=== PATIENT | male | born 1975 | race American Indian/Alaskan Native ===

== ENCOUNTER 2016-11-22 08:11 | Inpatient (IN) | payer MEDICARE ==
--- NOTE | 2016-11-22 08:24 | ED PDOC ---
Arrival/HPI - General Time Seen by Provider: 11/22/16 08:21 - History of Present Illness Narrative History of Present Illness (Text): 11/22/16 08:21 Pt transferred for psych admission from another facility. Previously medically cleared by another physician. pt currently denies complaints. Pt admitted to med non compliance, drug use, and auditory hallucinations. Denies suicidal or homicidal ideations. Past Medical History - Provider Review Nursing Documentation Reviewed: Yes Family/Social History Family/Social History: Unknown Family HX Allergies/Home Meds Allergies/Adverse Reactions: Allergies No Known Allergies Allergy (Verified 11/22/16 08:21) Home Medications: Home Meds Medication Instructions Recorded Confirmed Unobtainable 11/22/16 11/22/16 Physical Exam - Physical Exam Narrative Physical Exam (Text): 11/22/16 08:23 - Review of Systems Constitutional: Normal. absent: Fatigue, Weight Change, Fevers Eyes: Normal ENT: denies sore throat, denies tristhmus Respiratory: Normal. absent: SOB, Cough, Sputum Cardiovascular: absent: Chest Pain, Palpitations, Syncope Gastrointestinal: Normal. absent: Abdominal Pain, Diarrhea, Nausea, Vomiting Genitourinary: Normal. absent: Dysuria, Frequency, Hematuria Musculoskeletal: Normal. absent: Arthralgias, Back Pain, Neck Pain Skin: no rashes, no erythema Neurological: absent: Focal Weakness Endocrine: Normal Hemo/Lymphatic: Normal Psychiatric: No suicidal or homicidal ideations Physical exam Patient appears age appropriate in no distress, speaking full sentences without difficulty - Systems Exam Head: Present: Atraumatic, Normocephalic Pupils: Present: PERRL Extroacular Muscles: Present: EOMI Conjunctiva: Present: Normal Mouth: Present: Moist Mucous Membranes Neck: Present: Normal Range of Motion. No: MIDLINE TENDERNESS, Paraspinal Tenderness Respiratory/Chest: Present: Clear to Auscultation, Good Air Exchange. No: Respiratory Distress, Accessory Muscle Use, Tachypneic Cardiovascular: Present: Regular Rate and Rhythm, Normal S1, S2, Peripheal Pulses Present. No: Murmurs Abdomen: Present: Normal Bowel Sounds. No: Tenderness, Distention, Peritoneal Signs, Rebound, Guarding Back: Present: Normal Inspection. No: Midline Tenderness, Paraspinal Tenderness Upper Extremity: Present: Normal Inspection. No: Cyanosis, Edema Lower Extremity: Present: Normal Inspection. No: Edema Neurological: Present: GCS=15, Speech Normal, cranial nerves II through XII fully intact with no cerebellar abnormality, neurosensory fully intact. No focal neurological deficits. Skin: Present: Warm, Dry, Normal Color. No: Rashes Lymphatic: Present: OX3, NI, NC Psychiatric: Present: Alert, Oriented x 3, no SI/HI, cooperative Vital Signs Reviewed: Yes Vital Signs Temp Pulse Resp BP Pulse Ox 11/22/16 08:17 97.9 F 61 18 109/60 99 Temperature: Afebrile Blood Pressure: Normal Pulse: Regular Respiratory Rate: Normal Appearance: Positive for: Well-Appearing Pain Distress: None Mental Status: Positive for: Alert and Oriented X 3 Medical Decision Making ED Course and Treatment: 11/22/16 08:23 for psychiatric admission pt aware of and agrees with plan Disposition/Present on Arrival - Present on Arrival Any Indicators Present on Arrival: No - Disposition Have Diagnosis and Disposition been Completed?: Yes Diagnosis: Hallucinations Disposition: HOSPITALIZED Disposition Time: 08:24 Patient Plan: Admission Condition: FAIR
[2016-11-22 12:16] LABS: CHOLESTEROL 168 mg/dL (130-200)
[2016-11-22 13:43] LABS: URINE BILIRUBIN NEGATIVE (NEGATIVE); URINE BLOOD NEGATIVE (NEGATIVE); URINE GLUCOSE (UA) NEGATIVE (NEGATIVE); URINE KETONE NEGATIVE (NEGATIVE); URINE LEUKOCYTE ESTERASE NEGATIVE Leu/uL (NEGATIVE); URINE PROTEIN NEGATIVE mg/dL (<30 mg/dL); URINE UROBILINOGEN 0.2 E.U./dL (<1 E.U./dL)
[2016-11-22 13:45] LABS: URINE APPEARANCE CLEAR (CLEAR); URINE COLOR YELLOW (YELLOW)
--- NOTE | 2016-11-22 13:57 | CP.PCM.CON ---
<Malia Guzmán - Last Filed: 11/22/16 14:45> History of Present Illness - History of Present Illness History of Present Illness: Malia Guzmán DO, PGY-1, Hospitalist Service: Medical Consult Note 41 year old -Iraqi male with a history of polysubstance abuse, homelessness, and reported schizoaffective disorder, bipolar type who was seen at [facility] in [place], [place], medically cleared and transferred here to [facility] for in-patient, voluntary psychiatric management for auditory hallucinations. The patient reports smoking crack cocaine and then developing auditory hallucinations. He also admits to drinking alcohol heavily, "a pint of gin or vodka" regularly. His last drink was 4-5 days ago. He denies any seizure activity, any history of seizures, tremors, visual hallucinations, but admitted to some sweats and tremors in the interim. Routine diagnostic tests performed in [place] were normal, except for evidence of a Urinary Tract Infection, for which he was started on Doxycycline 100 mg BID. The patient admits to polyruia, 8-10 times a day for the past week, but denies dysuria, pyuria, suprapubic fullness, hesistance or decreased flow. He further denies any flank pain, fever, or chills. On review of systems, he denies any chest pain, SOB, nausea, vomiting, night sweat, hoarseness, diarrhea, or constipation. PMH: reported Schizoaffective disorder, bipolar type, polysubstance abuse PSH: Tonsillectomy in childhood Family History: Mother of Leukemia in 60s, Father of prostate cancer Allergies: NKDA Social: Homeless, unemployed; formerly worked in [employer] industry: Finished [employer]; Did not complete accounting and computer science degree from [employer]; uses Crack-cocaine, 35 pack year history of tobacco smoking, uses heroin -last used a month ago-denies knowledge of HCV or HIV status; drinks a pint of hard liquor a day, Review of Systems - Constitutional Constitutional: As Per HPI Past Patient History - Infectious Disease Hx of Infectious Diseases: None - Past Social History Smoking Status: Unknown If Ever Smoked - PSYCHIATRIC Hx Schizophrenia: Yes Hx Substance Use: Yes - SURGICAL HISTORY Hx Surgeries: No Meds Allergies/Adverse Reactions: Allergies Allergy/AdvReac Type Severity Reaction Status Date / Time No Known Allergies Allergy Verified 11/22/16 08:21 - Medications Medications: Current Medications Acetaminophen (Tylenol 325mg Tab) 650 mg PO Q6 PRN PRN Reason: Pain, moderate (4-7) Doxycycline Hyclate (Doryx) 100 mg PO Q12 BRIGETTE PRN Reason: Protocol Lorazepam (Ativan) 0.5 mg PO AMHS BRIGETTE Risperidone (Risperdal Tab) 0.5 mg PO AMHS BRIGETTE Zaleplon (Sonata) 5 mg PO HS PRN PRN Reason: Insomnia Physical Exam - Constitutional Appears: Well, Non-toxic - Head Exam Head Exam: ATRAUMATIC, NORMOCEPHALIC - Eye Exam Eye Exam: EOMI, Normal appearance - ENT Exam ENT Exam: Mucous Membranes Moist, Normal Oropharynx - Neck Exam Neck exam: Positive for: Normal Inspection. Negative for: Thyromegaly - Respiratory Exam Respiratory Exam: Clear to Auscultation Bilateral, NORMAL BREATHING PATTERN - Cardiovascular Exam Cardiovascular Exam: RRR, +S1, +S2 - GI/Abdominal Exam GI & Abdominal Exam: Normal Bowel Sounds, Soft. absent: Guarding, Rebound - Extremities Exam Extremities exam: Positive for: normal capillary refill, normal inspection, pedal pulses present - Back Exam Back exam: NORMAL INSPECTION. absent: CVA tenderness (L), CVA tenderness (R) - Neurological Exam Neurological exam: Alert, CN II-XII Intact, Oriented x3 - Psychiatric Exam Psychiatric exam: Normal Affect, Normal Mood - Skin Skin Exam: Dry, Intact, Normal Color, Warm Additional comments: Nails yellowed and unkempt Results - Vital Signs Recent Vital Signs: Last Vital Signs Temp 97.9 F 11/22/16 09:30 Pulse 62 11/22/16 09:30 Resp 20 11/22/16 09:30 BP 103/63 11/22/16 09:30 Pulse Ox 99 11/22/16 08:17 - Labs Labs: Laboratory Results - last 24 hr 11/22/16 11:50 Triglycerides 84 Cholesterol 168 LDL Cholesterol Direct 56 HDL Cholesterol 93 H - EKG Data EKG Interpreted by: Myself EKG shows normal: Sinus rhythm Rate: Normal Assessment & Plan - Assessment and Plan (Free Text) Assessment: 41 year old -Iraqi male with a history of polysubstance abuse, homelessness, and reported schizoaffective disorder, bipolar type who was seen at a hospital in [place], [place], and was medically cleared for transfer to [facility] psychiatric unit for auditory hallucinations likely secondary to crack use four days prior. He was found to have a UTI and started on Doxycycline 100 mg BID. Plan: 1) UTI - Patient admits to polyruria, UA was positive for Leukocyte Esterase with 10- 12 WBC from [place], [place] - Repeat Urine Analysis and Culture ordered -Continue with Doxycycline 100 mg BID 2) Routine screening: Labs from from [place], [place] Lipid panel within normal limits; EKG, CBC, and CMP reviewed and were all within normal limits except urine toxicology was positive for cocaine -TSH, HgbA1c, CMP, RPR, ordered for Thursday per Psychiatry 3) Polysubstance abuse, including possible alcohol withdrawal - Ativan PRN -Defer to psychiatric unit 4) Affective disorder, unspecified - Defer to psychiatric team Thank you for allowing us to participate in the care of this patient. - Date & Time Date: 11/22/16 Time: 14:35 <Jacquelin Lakhani - Last Filed: 11/22/16 15:31> Meds - Medications Medications: Current Medications Acetaminophen (Tylenol 325mg Tab) 650 mg PO Q6 PRN PRN Reason: Pain, moderate (4-7) Doxycycline Hyclate (Doryx) 100 mg PO Q12 BRIGETTE PRN Reason: Protocol Lorazepam (Ativan) 0.5 mg PO AMHS BRIGETTE Risperidone (Risperdal Tab) 0.5 mg PO AMHS BRIGETTE Zaleplon (Sonata) 5 mg PO HS PRN PRN Reason: Insomnia Results - Vital Signs Recent Vital Signs: Last Vital Signs Temp 97.9 F 11/22/16 09:30 Pulse 62 11/22/16 09:30 Resp 20 11/22/16 09:30 BP 103/63 11/22/16 09:30 Pulse Ox 99 11/22/16 08:17 - Labs Labs: Laboratory Results - last 24 hr 11/22/16 11/22/16 11:50 13:40 Triglycerides 84 Cholesterol 168 LDL Cholesterol Direct 56 HDL Cholesterol 93 H Urine Color Yellow Urine Appearance Clear Urine pH 6.0 Ur Specific [place] 1.020 Urine Protein Negative Urine Glucose (UA) Negative Urine Ketones Negative Urine Blood Negative Urine Nitrate Negative Urine Bilirubin Negative Urine Urobilinogen 0.2 Ur Leukocyte Esterase Negative Attending/Attestation - Attestation I have personally seen and examined this patient.: Yes I have fully participated in the care of the patient.: Yes I have reviewed all pertinent clinical information: Yes Notes (Text): 11/22/16 15:27 attending note; Patient seen and examined with resident. Patient is a 41 year old -Iraqi male with a history of polysubstance abuse, homelessness, and reported schizoaffective disorder, bipolar type is admitted to the psychiatric floor for depression. Patient was transferred from [facility]. Labs reviewed. UA showed negative nitrate few leukocytes. Patient is afebrile. Nontoxic. No urinary symptoms. WBC count is normal. Clean catch urine is negative for nitrates and leukocytes. Will discontinue doxycycline. Active smoking; smoking cessation is strongly advised. started on NicoDerm patch. Alcohol use; alcohol cessation is strongly advised. cocaine abuse; cessation is strongly advised. Patient is medically stable. Please reconsult As needed. thank you for the courtesy of this consultation. Advised to follow-up with PMD of choice upon discharge.
--- NOTE | 2016-11-22 15:49 | PCM.BM ---
Treatment Plan Problems - Problems identified on initial assessmt Hopelessness Date Initiated: 11/22/16 Time Initiated: 10:00 Assessment reference: NA Status: Active Priority: 1 Worthlessness Date Initiated: 11/22/16 Time Initiated: 10:00 Assessment reference: NA Status: Active Priority: 2 Medication NonCompliance Date Initiated: 11/22/16 Time Initiated: 10:00 Assessment reference: NA Status: Active Priority: 3 Treatment assets and liabiliti Patient Assests: negotiates basic needs Patient Liabilities: poor support system, substance abuse, legal issue - Milieu Protocol Maintain good personal hygiene: daily Encourage regular showers, daily Remind patient to perform daily oral care, daily Assist patient to perform ADL's Conduct patient checks and document Observation sheet: Q15 minutes Maintain personal safety: every shift Educate patient to report safety concerns to staff, every shift Monitor environment for contraband/sharps Medication safety: Monitor for expected outcome, potential side effects: every shift, Assess barriers to learning: every shift, Assess readiness for medication education: every shift Discharge/Continuing Care - Education Needs Education Needs: Patient Medication, Patient Diagnosis/Disease Process, Patient Coping Skills, Patient Anger Management skills, Patient Placement options, Patient Activities of Daily Living, Patient Nutrition, Patient Health Practices/ Safety, Patient Aftercare Safety Plan - Discharge Discharge Criteria: Free of paranoid thoughts, Ability to care for self
[2016-11-23 08:59] LABS: BASO # 0.05 K/mm3 (0.0-2.0); BASO % 0.9 % (0.0-3.0); EOS # 0.2 (0.0-0.7); EOS % 3.7 % (1.5-5.0); GRAN # 3.03 (1.4-6.5); GRAN % 56.6 % (50.0-68.0); HEMATOCRIT 39.7 % (42.0-52.0); LYMPH # 1.6 (1.2-3.4); LYMPH % 29.1 % (22.0-35.0); MEAN CELL VOLUME 78.8 fl (80.0-105.0); MEAN CORPUSCULAR HEMOGLOBIN 26.6 pg (25.0-35.0); MEAN CORPUSCULAR HGB CONC 33.8 g/dl (31.0-37.0); MEAN PLATELET VOLUME 8.4 fl (7.0-11.0); MONO # 0.5 (0.1-0.6); MONO % 9.7 % (1.0-6.0); RED CELL DISTRIBUTION WIDTH 15.6 % (11.5-14.5); WHITE BLOOD COUNT 5.4 10^3/ul (4.5-11.0)
[2016-11-23 09:03] LABS: ALB/GLOB RATIO 1.1 (1.1-1.8); ALKALINE PHOSPHATASE 63 U/L (38-126); ALT/SGPT 33 U/L (7-56); AST/SGOT 25 U/L (17-59); BILIRUBIN,TOTAL 0.3 mg/dL (0.2-1.3); BLOOD UREA NITROGEN 15 mg/dL (7-21); CALCIUM 9.3 mg/dL (8.4-10.5); CARBON DIOXIDE 28 mmol/L (21-33); CHLORIDE 104 mmol/L (98-107); GFR AFRICAN-AMERICAN > 60; GLUCOSE,RANDOM 88 mg/dL (70-110); POTASSIUM 4.1 mmol/L (3.6-5.0); SODIUM 141 mmol/L (132-148); TOTAL PROTEIN 7.2 g/dL (5.8-8.3)
[2016-11-23] MEDS: Multivitamin With Minerals Tab PO SCH (09:04)
--- NOTE | 2016-11-23 09:26 | PCM.PSYCH ---
Initial Psychiatric Evaluation - Initial Psychiatric Evaluation Type of Admission: Voluntary Legal Status: Capacity History of Present Illness and Precipitating Events: Patient is a single homeless 41 year old -Martiniquais male with a reported history of Schizoaffective disorder, bipolar type, crack/cocaine abuse, alcohol abuse, prior psychiatric admissions-most recently at [facility] x2 months ago, no SA, noncompliance with medications who was transferred from [facility] in [place], [place] to [facility] unit for treatment of depression and auditory hallucinations. I reviewed [facility] paperwork and recent notes. I interviewed patient bedside however he was sedated and minimally cooperative with interview questions. Most information was gathered from aforementioned paperwork. Patient arrived at [facility] ED indicating that he "needed help to get back on his feet". Patient has been homeless for over year, using crack cocaine and drinking a pint of vodka regularly. His last drink was 5 days ago. Urine drug screen was positive for cocaine BAL<10. Patient only takes his medications when he is hospitalized, most recently two months ago. Presently patient continues to feel depressed however he feels safe on the unit and does not have any thoughts to harm himself. He also denies recurrence of hallucinations. Responses are relevant to questioning though they are brief and disengaged. Denies any new discomfort or pain. Thus far patient has been in control and there were no behavioral issues. PSYCHIATRIC HISTORY Patient reports multiple hospitalizations mess recently two months ago at [facility]. Patient reports that he was not compliant with medications upon discharge. Reported prescribed Haldol at discharge. Patient denies any history of suicide attempts. Patient denies any current outpatient follow-up. SOCIAL HISTORY Patient was born and raise in [place]. Homeless and unemployed. Patient completed high school. He is single and he has one 12-year-old daughter. Patient reports that he smokes crack/ cocaine and drinks a pint of vodka regularly. Patient also used heroin approximately one month ago. He denies any tobacco use. Current Medications: Active Medications Generic Name Dose Route Start Last Admin Trade Name Freq PRN Reason Stop Dose Admin Acetaminophen 650 mg 11/22/16 10:50 Tylenol 325mg Tab PO Q6 PRN Pain, moderate (4-7) Lorazepam 0.5 mg 11/22/16 22:00 11/22/16 21:11 Ativan PO 0.5 mg AMHS BRIGETTE Administration Multivitamins/Minerals 1 tab 11/23/16 08:00 Therapeutic-M Tab PO 0800 BRIGETTE Nicotine 1 patch 11/22/16 15:45 11/22/16 18:05 Nicoderm Cq TD Not Given DAILY BRIGETTE Risperidone 0.5 mg 11/22/16 22:00 11/22/16 21:11 Risperdal Tab PO 0.5 mg AMHS BRIGETTE Administration Zaleplon 5 mg 11/22/16 11:02 11/22/16 21:11 Sonata PO 5 mg HS PRN Administration Insomnia Past Psychiatric History - Past Psychiatric History Pertinent Medical Hx (Current Medical&Sleep Prob, Allergies): Allergies Allergy/AdvReac Type Severity Reaction Status Date / Time No Known Allergies Allergy Verified 11/22/16 08:21 Unobtainable 11/22/16 DSM 5 DX - DSM 5 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 - Recommended/Plan of Treatment Treatment Recommendations and Plan of Treatment: * grp, milieu and supportive tx * Celexa 10 mg po daily for depression * Haldol 2 mg AM/HS for hallucinations * Ativan 1 mg q8 for alcohol withdrawal and for anxiety * Sonata 5 mg HS prn for insomnia * Appreciate f/u by Dr Lakhani -To repeat Urine Analysis and Culture ordered -Continue with Doxycycline 100 mg BID for UTI * Vitals reviewed and noted below Selected Entries 11/22/16 11/22/16 11/23/16 09:30 16:28 06:56 Temperature 97.9 F 97.4 F L Pulse Rate 62 76 64 Respiratory 20 18 Rate Blood Pressure 103/63 103/61 81/46 L O2 Sat by Pulse 99 Oximetry Labs from from [place], [place] CBC, Chemistry, LFTS were reviewed and all within normal limits except urine toxicology was positive for cocaine UA was positive for Leukocyte Esterase with 10-12 WBC [facility] Floor Labs Laboratory Results - last 24 hr 11/22/16 11/22/16 11/23/16 11:50 13:40 08:40 WBC 5.4 RBC 5.04 Hgb 13.4 L Hct 39.7 L MCV 78.8 L MCH 26.6 MCHC 33.8 RDW 15.6 H Plt Count 342 MPV 8.4 Gran % 56.6 Lymph % (Auto) 29.1 [place] % (Auto) 9.7 H Eos % (Auto) 3.7 Baso % (Auto) 0.9 Gran # 3.03 Lymph # 1.6 [place] # 0.5 Eos # 0.2 Baso # 0.05 Sodium Potassium Chloride Carbon Dioxide Anion Gap BUN Creatinine Est GFR ( Amer) Est GFR (Non-Af Amer) Random Glucose Calcium Total Bilirubin AST ALT Alkaline Phosphatase Total Protein Albumin Globulin Albumin/Globulin Ratio Triglycerides 84 Cholesterol 168 LDL Cholesterol Direct 56 HDL Cholesterol 93 H Urine Color Yellow Urine Appearance Clear Urine pH 6.0 Ur Specific [place] 1.020 Urine Protein Negative Urine Glucose (UA) Negative Urine Ketones Negative Urine Blood Negative Urine Nitrate Negative Urine Bilirubin Negative Urine Urobilinogen 0.2 Ur Leukocyte Esterase Negative 11/23/16 08:40 WBC RBC Hgb Hct MCV MCH MCHC RDW Plt Count MPV Gran % Lymph % (Auto) [place] % (Auto) Eos % (Auto) Baso % (Auto) Gran # Lymph # [place] # Eos # Baso # Sodium 141 Potassium 4.1 Chloride 104 Carbon Dioxide 28 Anion Gap 13 BUN 15 Creatinine 0.8 Est GFR ( Amer) > 60 Est GFR (Non-Af Amer) > 60 Random Glucose 88 Calcium 9.3 Total Bilirubin 0.3 AST 25 ALT 33 Alkaline Phosphatase 63 Total Protein 7.2 Albumin 3.7 Globulin 3.5 Albumin/Globulin Ratio 1.1 Triglycerides Cholesterol LDL Cholesterol Direct HDL Cholesterol Urine Color Urine Appearance Urine pH Ur Specific [place] Urine Protein Urine Glucose (UA) Urine Ketones Urine Blood Urine Nitrate Urine Bilirubin Urine Urobilinogen Ur Leukocyte Esterase - Smoking Cessation Smoking Cessation Initiated: No
[2016-11-24] MEDS: Multivitamin With Minerals Tab PO SCH (11:13)
--- NOTE | 2016-11-24 11:40 | PCM.BM ---
<Ron Elizabeth - Last Filed: 11/24/16 11:36> Treatment Plan Problems - Problems identified on initial assessmt Problem 2 Date Initiated: 11/22/16 Time Initiated: 10:00 Assessment reference: NA Status: Active Priority: 2 Hopelessness Date Initiated: 11/22/16 Time Initiated: 10:00 Assessment reference: NA Status: Active Priority: 1 Medication NonCompliance Date Initiated: 11/22/16 Time Initiated: 10:00 Assessment reference: NA Status: Active Priority: 3 Worthlessness Date Initiated: 11/22/16 Time Initiated: 10:00 Assessment reference: NA Status: Active Priority: 2 Treatment assets and liabiliti Patient Assests: negotiates basic needs Patient Liabilities: poor support system, substance abuse, legal issue - Milieu Protocol Maintain good personal hygiene: daily Encourage regular showers, daily Remind patient to perform daily oral care, daily Assist patient to perform ADL's Conduct patient checks and document Observation sheet: Q15 minutes Maintain personal safety: every shift Educate patient to report safety concerns to staff, every shift Monitor environment for contraband/sharps Medication safety: Monitor for expected outcome, potential side effects: every shift, Assess barriers to learning: every shift, Assess readiness for medication education: every shift Milieu Narrative: * grp, milieu and supportive tx * Celexa 10 mg po daily for depression * Haldol 2 mg AM/HS for hallucinations * Ativan 1 mg q8 for alcohol withdrawal and for anxiety * Sonata 5 mg HS prn for insomnia * Appreciate f/u by Dr Lakhani -To repeat Urine Analysis and Culture ordered -Continue with Doxycycline 100 mg BID for UTI * Vitals reviewed and noted below Selected Entries 11/22/16 11/22/16 11/23/16 09:30 16:28 06:56 Temperature 97.9 F 97.4 F L Pulse Rate 62 76 64 Respiratory 20 18 Rate Blood Pressure 103/63 103/61 81/46 L O2 Sat by Pulse 99 Oximetry Labs from from [place], [place] CBC, Chemistry, LFTS were reviewed and all within normal limits except urine toxicology was positive for cocaine UA was positive for Leukocyte Esterase with 10-12 WBC [facility] Floor Labs Laboratory Results - last 24 hr 11/22/16 11/22/16 11/23/16 11:50 13:40 08:40 WBC 5.4 RBC 5.04 Hgb 13.4 L Hct 39.7 L MCV 78.8 L MCH 26.6 MCHC 33.8 RDW 15.6 H Plt Count 342 MPV 8.4 Gran % 56.6 Lymph % (Auto) 29.1 [place] % (Auto) 9.7 H Eos % (Auto) 3.7 Baso % (Auto) 0.9 Gran # 3.03 Lymph # 1.6 [place] # 0.5 Eos # 0.2 Baso # 0.05 Sodium Potassium Chloride Carbon Dioxide Anion Gap BUN Creatinine Est GFR ( Amer) Est GFR (Non-Af Amer) Random Glucose Calcium Total Bilirubin AST ALT Alkaline Phosphatase Total Protein Albumin Globulin Albumin/Globulin Ratio Triglycerides 84 Cholesterol 168 LDL Cholesterol Direct 56 HDL Cholesterol 93 H Urine Color Yellow Urine Appearance Clear Urine pH 6.0 Ur Specific [place] 1.020 Urine Protein Negative Urine Glucose (UA) Negative Urine Ketones Negative Urine Blood Negative Urine Nitrate Negative Urine Bilirubin Negative Urine Urobilinogen 0.2 Ur Leukocyte Esterase Negative 11/23/16 08:40 WBC RBC Hgb Hct MCV MCH MCHC RDW Plt Count MPV Gran % Lymph % (Auto) [place] % (Auto) Eos % (Auto) Baso % (Auto) Gran # Lymph # [place] # Eos # Baso # Sodium 141 Potassium 4.1 Chloride 104 Carbon Dioxide 28 Anion Gap 13 BUN 15 Creatinine 0.8 Est GFR ( Amer) > 60 Est GFR (Non-Af Amer) > 60 Random Glucose 88 Calcium 9.3 Total Bilirubin 0.3 AST 25 ALT 33 Alkaline Phosphatase 63 Total Protein 7.2 Albumin 3.7 Globulin 3.5 Albumin/Globulin Ratio 1.1 Triglycerides Cholesterol LDL Cholesterol Direct HDL Cholesterol Urine Color Urine Appearance Urine pH Ur Specific [place] Urine Protein Urine Glucose (UA) Urine Ketones Urine Blood Urine Nitrate Urine Bilirubin Urine Urobilinogen Ur Leukocyte Esterase Discharge/Continuing Care - Education Needs Education Needs: Patient Medication, Patient Diagnosis/Disease Process, Patient Coping Skills, Patient Anger Management skills, Patient Placement options, Patient Activities of Daily Living, Patient Nutrition, Patient Health Practices/ Safety, Patient Aftercare Safety Plan - Discharge Discharge Criteria: Free of paranoid thoughts, Ability to care for self - Treatment Team Participation Patient/Family/SO Statement: * grp, milieu and supportive tx * Celexa 10 mg po daily for depression * Haldol 2 mg AM/HS for hallucinations * Ativan 1 mg q8 for alcohol withdrawal and for anxiety * Sonata 5 mg HS prn for insomnia * Appreciate f/u by Dr Lakhani -To repeat Urine Analysis and Culture ordered -Continue with Doxycycline 100 mg BID for UTI * Vitals reviewed and noted below Selected Entries 11/22/16 11/22/16 11/23/16 09:30 16:28 06:56 Temperature 97.9 F 97.4 F L Pulse Rate 62 76 64 Respiratory 20 18 Rate Blood Pressure 103/63 103/61 81/46 L O2 Sat by Pulse 99 Oximetry Labs from from [place], [place] CBC, Chemistry, LFTS were reviewed and all within normal limits except urine toxicology was positive for cocaine UA was positive for Leukocyte Esterase with 10-12 WBC [facility] Floor Labs Laboratory Results - last 24 hr 11/22/16 11/22/16 11/23/16 11:50 13:40 08:40 WBC 5.4 RBC 5.04 Hgb 13.4 L Hct 39.7 L MCV 78.8 L MCH 26.6 MCHC 33.8 RDW 15.6 H Plt Count 342 MPV 8.4 Gran % 56.6 Lymph % (Auto) 29.1 [place] % (Auto) 9.7 H Eos % (Auto) 3.7 Baso % (Auto) 0.9 Gran # 3.03 Lymph # 1.6 [place] # 0.5 Eos # 0.2 Baso # 0.05 Sodium Potassium Chloride Carbon Dioxide Anion Gap BUN Creatinine Est GFR ( Amer) Est GFR (Non-Af Amer) Random Glucose Calcium Total Bilirubin AST ALT Alkaline Phosphatase Total Protein Albumin Globulin Albumin/Globulin Ratio Triglycerides 84 Cholesterol 168 LDL Cholesterol Direct 56 HDL Cholesterol 93 H Urine Color Yellow Urine Appearance Clear Urine pH 6.0 Ur Specific [place] 1.020 Urine Protein Negative Urine Glucose (UA) Negative Urine Ketones Negative Urine Blood Negative Urine Nitrate Negative Urine Bilirubin Negative Urine Urobilinogen 0.2 Ur Leukocyte Esterase Negative 11/23/16 08:40 WBC RBC Hgb Hct MCV MCH MCHC RDW Plt Count MPV Gran % Lymph % (Auto) [place] % (Auto) Eos % (Auto) Baso % (Auto) Gran # Lymph # [place] # Eos # Baso # Sodium 141 Potassium 4.1 Chloride 104 Carbon Dioxide 28 Anion Gap 13 BUN 15 Creatinine 0.8 Est GFR ( Amer) > 60 Est GFR (Non-Af Amer) > 60 Random Glucose 88 Calcium 9.3 Total Bilirubin 0.3 AST 25 ALT 33 Alkaline Phosphatase 63 Total Protein 7.2 Albumin 3.7 Globulin 3.5 Albumin/Globulin Ratio 1.1 Triglycerides Cholesterol LDL Cholesterol Direct HDL Cholesterol Urine Color Urine Appearance Urine pH Ur Specific [place] Urine Protein Urine Glucose (UA) Urine Ketones Urine Blood Urine Nitrate Urine Bilirubin Urine Urobilinogen Ur Leukocyte Esterase Treatment Plan Review - Problem Problem 2 Time Initiated: 10:00 Hopelessness Time Initiated: 10:00 Medication NonCompliance Time Initiated: 10:00 Worthlessness Time Initiated: 10:00 <Esme Reyes - Last Filed: 11/24/16 13:51> - Diagnosis (1) Schizoaffective disorder Status: Acute Interventions: 11/24/16 13:52 Psychoeducation/psychotherapy Psychopharmacology/adjustment of medications as needed/ monitoring possible side effects Evaluate pt on daily basis Compliance with medications and follow up appointments Long acting medication if pt is noncompliant with pill form Suicide and homicide risk assessment and prevention, coping strategies, safety plan Relapse prevention Reduction of symptoms Improve functional status Possible assertive community treatment Cognitive behavioral therapy Family involvement Possible social skill training as outpatient (2) Polysubstance abuse Status: Acute Interventions: 11/24/16 13:52 Monitoring withdrawal symptoms Medical detoxification Pharmacotherapy for alcohol/benzos/opioid dependence Maintaining sobriety Relapse prevention Possible rehabilitation Motivational interviewing 12-step programs: AA meetings <Marci Pruett - Last Filed: 11/24/16 16:23>
--- NOTE | 2016-11-24 14:21 | PCM.PYCHPN ---
Psychiatric Progress Note - Psychiatric Progress Note Patient seen today, length of contact: 30min Patient Chief Complaint: " I came here because I need to find out what medications I need to be on ..." Diagnostic Results: 11/23/16 08:40 11/23/16 08:40 Lab Results 11/23/16 08:40: RPR Nonreactive 11/23/16 08:40: TSH 3rd Generation 0.52 11/23/16 08:40: Sodium 141, Potassium 4.1, Chloride 104, Carbon Dioxide 28, Anion Gap 13, BUN 15, Creatinine 0.8, Est GFR ( Amer) > 60, Est GFR (Non- Af Amer) > 60, Random Glucose 88, Calcium 9.3, Total Bilirubin 0.3, AST 25, ALT 33, Alkaline Phosphatase 63, Total Protein 7.2, Albumin 3.7, Globulin 3.5, Albumin/Globulin Ratio 1.1 11/23/16 08:40: WBC 5.4, RBC 5.04, Hgb 13.4 L, Hct 39.7 L, MCV 78.8 L, MCH 26.6 , MCHC 33.8, RDW 15.6 H, Plt Count 342, MPV 8.4, Gran % 56.6, Lymph % (Auto) 29.1, [place] % (Auto) 9.7 H, Eos % (Auto) 3.7, Baso % (Auto) 0.9, Gran # 3.03, Lymph # 1.6, [place] # 0.5, Eos # 0.2, Baso # 0.05 11/22/16 13:40: Urine Color Yellow, Urine Appearance Clear, Urine pH 6.0, Ur Specific [place] 1.020, Urine Protein Negative, Urine Glucose (UA) Negative, Urine Ketones Negative, Urine Blood Negative, Urine Nitrate Negative, Urine Bilirubin Negative, Urine Urobilinogen 0.2, Ur Leukocyte Esterase Negative 11/22/16 11:50: Triglycerides 84, Cholesterol 168, LDL Cholesterol Direct 56, HDL Cholesterol 93 H Vital Signs Temp Pulse Resp BP Pulse Ox 11/24/16 07:46 97.4 F L 74 100/70 20 L 11/23/16 06:56 97.4 F L 64 18 81/46 L 99 11/22/16 16:28 76 103/61 11/22/16 09:30 97.9 F 62 20 103/63 09/23/17 08:17 97.9 F 61 18 109/60 99 DSM 5 Symptoms Update: as per assessment: Patient is a single homeless 41 year old -Ira[place] male with a reported history of Schizoaffective disorder, bipolar type, crack/cocaine abuse, alcohol abuse, prior psychiatric admissions-most recently at [facility] x2 months ago, no SA, noncompliance with medications who was transferred from [facility] in [place], [place] to [facility] Psychiatric unit for treatment of depression and auditory hallucinations. Patient was seen at the treatment team meeting, patient presented to have very poor personal hygiene, disengaged, acceptable ADLs. I reviewed assessment, [facility] paperwork and recent notes. pt is still minimally cooperative with interview questions he said he came to the hospital "to find out what medications I need to be on...". as per h/o pt was using cocaine crack an 1pint of vodka daily, no withdrawal symptoms, pt seems to be comfortable. Presently patient continues to feel depressed however he feels safe on the unit and does not have any thoughts to harm himself. He also denies recurrence of hallucinations. as per staff report pt self isolating, not interested to go to the groups. pt has redness of his right eye, will call for the medical team. possible abx. pt is on doxycycline for UTI from the [facility]. Pt was alert, oriented in self, time and place. Memory and concentration are poor, fund of knowledge is poor. Pt deemed to be unreliable historian, disengaged. Pt looks older than chronological age, poor personal hygiene, fair ADLs, with psychomotor retardation, speech was: slow, slurred, no eye contact, mood described:"depressed", affect:flat , thought process: concrete thought content: denied SI/ HI, denied v/a/t hallucinations, denied paranoid ideation, but pt appear to be internally preoccupied, ( pt c/o voices in the [facility]) fair insight/judgment: , impulses are well controlled. 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 Plan: grp, milieu and supportive tx Celexa 10 mg po daily for depression will be continued Haldol 2 mg AM/HS for hallucinations will be continued Ativan 1 mg q8 for alcohol withdrawal and for anxiety to be continued Sonata 5 mg HS prn for insomnia to be continued Appreciate f/u by Dr Lakhani, will call for reconsult for possible conjunctivitis To repeat Urine Analysis and Culture ordered Continue with Doxycycline 100 mg BID for UTI Pt was educated about risk/benefits and alternatives of medications, coping strategies (safety plan, suicide prevention), relapse prevention, importance of follow up with psychiatrist and therapist, stay away from drugs/alcohol/smoking MVI, thiamine, folic acid Monitor vitals Medication Change: Yes (started by Dr. Sheridan) Consults ordered or reviewed: pt was seen by medical team Goal/Treatment Plan - Goal/Treatment Plan Need for Continued Stay: Severe depression anxiety, Discharge may exacerbated symptoms, Severe functional impairment Estimated Date of D/C: 12/01/16
--- NOTE | 2016-11-24 15:26 | CP.PCM.PN ---
<Tay Victoria - Last Filed: 11/24/16 15:40> Subjective - Date & Time of Evaluation Date of Evaluation: 11/24/16 Time of Evaluation: 15:00 - Subjective Subjective: IM Progress note: Pt seen and examined at bedside. No acute events. Pt c/o some eye itchiness. Denies any redness, pain, or drainage. He states that he gets this when his allergies flare up. No other complaints. Denies any f/v, sob, cp, abd pain, urinary changes. Objective - Vital Signs/Intake and Output Vital Signs (last 24 hours): Temp Pulse Resp BP Pulse Ox 97.4 F L 74 18 100/70 20 L 11/24/16 07:46 11/24/16 07:46 11/23/16 06:56 11/24/16 07:46 11/24/16 07:46 - Medications Medications: Current Medications Acetaminophen (Tylenol 325mg Tab) 650 mg PO Q6 PRN PRN Reason: Pain, moderate (4-7) Citalopram Hydrobromide (Celexa) 10 mg PO DAILY [facility] Last Admin: 11/24/16 11:13 Dose: 10 mg Doxycycline Hyclate (Doryx) 100 mg PO Q12 [facility] PRN Reason: Protocol Stop: 12/02/16 07:00 Folic Acid (Folic Acid) 1 mg PO DAILY [facility] Haloperidol (Haldol) 2 mg PO AMHS [facility] PRN Reason: Protocol Last Admin: 11/24/16 11:14 Dose: 2 mg Lorazepam (Ativan) 1 mg PO Q8 [facility] Last Admin: 11/24/16 07:03 Dose: 1 mg Multivitamins/Minerals (Therapeutic-M Tab) 1 tab PO 0800 [facility] Last Admin: 11/24/16 11:13 Dose: 1 tab Thiamine HCl (Vitamin B1 Tab) 100 mg PO DAILY [facility] Zaleplon (Sonata) 5 mg PO HS PRN PRN Reason: Insomnia Last Admin: 11/23/16 21:38 Dose: 5 mg - Labs Labs: 11/23/16 08:40 11/23/16 08:40 - Constitutional Appears: No Acute Distress - Head Exam Head Exam: NORMAL INSPECTION - Eye Exam Eye Exam: EOMI, PERRL. absent: Conjunctival injection, Periorbital swelling, Scleral icterus Pupil Exam: NORMAL ACCOMODATION. absent: Miosis, Mydriatic - ENT Exam ENT Exam: Mucous Membranes Moist - Respiratory Exam Respiratory Exam: Clear to Ausculation Bilateral. absent: Rales, Wheezes - Cardiovascular Exam Cardiovascular Exam: RRR, +S1, +S2 - GI/Abdominal Exam GI & Abdominal Exam: Soft, Normal Bowel Sounds. absent: Tenderness - Extremities Exam Extremities Exam: absent: Calf Tenderness, Pedal Edema - Neurological Exam Neurological Exam: Alert, Awake, Oriented x3 - Psychiatric Exam Psychiatric exam: Normal Affect, Normal Mood - Skin Skin Exam: Dry, Intact, Normal Color, Warm Assessment and Plan - Assessment and Plan (Free Text) Assessment: 41 year old -[place]wegian male with a history of polysubstance abuse, homelessness, and reported schizoaffective disorder, bipolar type is admitted to the psychiatric floor for depression. Today pt complain of some eye itchiness. - Claritin 10mg daily for allergies - Visine eye drops 1-2 ggt to the affected eye Q6H PRN - Psych management as per psychiatry team - GI/DVT ppx - diet and ambulation Case and plan was reviewed and discussed in detail with Dr Bradley. <Tamela Bradley - Last Filed: 11/26/16 16:41> Objective - Vital Signs/Intake and Output Vital Signs (last 24 hours): Temp Pulse Resp BP Pulse Ox 98.1 F 98 H 18 105/67 100 11/25/16 10:00 11/26/16 01:19 11/26/16 01:19 11/25/16 10:00 11/26/16 01:19 - Medications Medications: Current Medications Acetaminophen (Tylenol 325mg Tab) 650 mg PO Q6 PRN PRN Reason: Pain, moderate (4-7) Citalopram Hydrobromide (Celexa) 20 mg PO DAILY [facility] Doxycycline Hyclate (Doryx) 100 mg PO Q12 [facility] PRN Reason: Protocol Stop: 12/02/16 07:00 Last Admin: 11/26/16 06:04 Dose: 100 mg Folic Acid (Folic Acid) 1 mg PO DAILY [facility] Last Admin: 11/26/16 09:52 Dose: 1 mg Haloperidol (Haldol) 2 mg PO AMHS [facility] PRN Reason: Protocol Last Admin: 11/26/16 09:51 Dose: 2 mg Loratadine (Claritin) 10 mg PO DAILY [facility] Last Admin: 11/26/16 10:03 Dose: 10 mg Lorazepam (Ativan) 1 mg PO Q12 PRN PRN Reason: Anxiety Multivitamins/Minerals (Therapeutic-M Tab) 1 tab PO 0800 [facility] Last Admin: 11/26/16 09:52 Dose: 1 tab Tetrahydrozoline HCl/Zinc Sulfate (Visine 0.05% Opht Soln) 0 ml OU Q6H PRN PRN Reason: Itching / Pruritus Last Admin: 11/26/16 09:52 Dose: 1 drop Thiamine HCl (Vitamin B1 Tab) 100 mg PO DAILY [facility] Last Admin: 11/26/16 10:01 Dose: 100 mg Zaleplon (Sonata) 5 mg PO HS PRN PRN Reason: Insomnia Last Admin: 11/25/16 21:16 Dose: 5 mg - Labs Labs: 11/23/16 08:40 11/23/16 08:40 Attending/Attestation - Attestation I have personally seen and examined this patient.: Yes I have fully participated in the care of the patient.: Yes I have reviewed all pertinent clinical information, including history, physical exam and plan: Yes Notes (Text): I have seen and examined patient at bedside. Agree with the above note with the following additions/ exceptions: We were called to evaluate conjunctivitis. Patient does not have red eye or discharge. Vision is normal. No evidence of keratitis and there are no warning signs. Most likely it is allergic conjuctivitis. Advised patient not to rub the eyes, do not use the contact lens , cool compresses and artificial tears. Visine eye drops for 1-2 days only. Please reconsult if you have any concerns. Dr Tamela Bradley.
[2016-11-24] MEDS ORDERED: Tetrahydrozoline Opht 0.05% Sol (15 ml) OU PRN (15:28)
[2016-11-25] MEDS: Multivitamin With Minerals Tab PO SCH (09:12)
--- NOTE | 2016-11-25 16:29 | PCM.PYCHPN ---
Psychiatric Progress Note - Psychiatric Progress Note Patient seen today, length of contact: 30min Patient Chief Complaint: " I am better" Medical Problems: see medical team note for more detailed info Diagnostic Results: 11/23/16 08:40 11/23/16 08:40 Lab Results 11/23/16 08:40: RPR Nonreactive 11/23/16 08:40: TSH 3rd Generation 0.52 11/23/16 08:40: Sodium 141, Potassium 4.1, Chloride 104, Carbon Dioxide 28, Anion Gap 13, BUN 15, Creatinine 0.8, Est GFR ( Amer) > 60, Est GFR (Non- Af Amer) > 60, Random Glucose 88, Calcium 9.3, Total Bilirubin 0.3, AST 25, ALT 33, Alkaline Phosphatase 63, Total Protein 7.2, Albumin 3.7, Globulin 3.5, Albumin/Globulin Ratio 1.1 11/23/16 08:40: WBC 5.4, RBC 5.04, Hgb 13.4 L, Hct 39.7 L, MCV 78.8 L, MCH 26.6 , MCHC 33.8, RDW 15.6 H, Plt Count 342, MPV 8.4, Gran % 56.6, Lymph % (Auto) 29.1, [place] % (Auto) 9.7 H, Eos % (Auto) 3.7, Baso % (Auto) 0.9, Gran # 3.03, Lymph # 1.6, [place] # 0.5, Eos # 0.2, Baso # 0.05 11/22/16 13:40: Urine Color Yellow, Urine Appearance Clear, Urine pH 6.0, Ur Specific [place] 1.020, Urine Protein Negative, Urine Glucose (UA) Negative, Urine Ketones Negative, Urine Blood Negative, Urine Nitrate Negative, Urine Bilirubin Negative, Urine Urobilinogen 0.2, Ur Leukocyte Esterase Negative 11/22/16 11:50: Triglycerides 84, Cholesterol 168, LDL Cholesterol Direct 56, HDL Cholesterol 93 H Vital Signs Temp Pulse Resp BP Pulse Ox 11/24/16 07:46 97.4 F L 74 100/70 20 L 11/23/16 06:56 97.4 F L 64 18 81/46 L 99 11/22/16 16:28 76 103/61 11/22/16 09:30 97.9 F 62 20 103/63 11/22/16 08:17 97.9 F 61 18 109/60 99 Temp Pulse Resp BP Pulse Ox 98.1 F 70 16 105/67 20 L 11/25/16 10:00 11/25/16 10:00 11/25/16 10:00 11/25/16 10:00 11/24/16 07:46 DSM 5 Symptoms Update: Patient is a single homeless 41 year old -[place] Citizen male with a reported history of Schizoaffective disorder, bipolar type, crack/cocaine abuse, alcohol abuse, prior psychiatric admissions-most recently at [facility] x2 months ago, no SA, noncompliance with medications who was transferred from [facility] in [place], [place] to [facility] Psychiatric unit for treatment of depression and auditory hallucinations. Patient was seen in his room, patient presented to have very poor personal hygiene, disengaged, acceptable ADLs. pt is still minimally cooperative with interview pt was talking to this senior copywriter looking on the wall. Presently patient continues to feel depressed however he feels safe on the unit and does not have any thoughts to harm himself. He also denies recurrence of hallucinations. as per staff report pt self isolating, not interested to go to the groups. pt has redness of his right eye, will call for the medical team. possible abx. pt is on doxycycline for UTI from the [facility]. MSE: Pt was alert, oriented in self, time and place. Memory and concentration are poor, fund of knowledge is poor. Pt deemed to be unreliable historian, disengaged. Pt looks older than chronological age, poor personal hygiene, fair ADLs, with psychomotor retardation, speech was: slow, slurred, no eye contact, mood described:"depressed", affect:flat , thought process: concrete thought content: denied SI/ HI, denied v/a/t hallucinations, denied paranoid ideation, but pt appear to be internally preoccupied, ( pt c/o voices in the [facility]) fair insight/judgment: , impulses are well controlled. 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 Plan: grp, milieu and supportive tx Celexa 15 mg po daily for depression will be continued Haldol 2 mg AM/HS for hallucinations will be continued Ativan 1 mg q12 for alcohol withdrawal and for anxiety to be continued Sonata 5 mg HS prn for insomnia to be continued Appreciate f/u by Dr Lakhani, will call for reconsult for possible conjunctivitis, pt was seen for f/u To repeat Urine Analysis and Culture ordered Continue with Doxycycline 100 mg BID for UTI Pt was educated about risk/benefits and alternatives of medications, coping strategies (safety plan, suicide prevention), relapse prevention, importance of follow up with psychiatrist and therapist, stay away from drugs/alcohol/smoking MVI, thiamine, folic acid Monitor vitals Medication Change: Yes (ativan decreased, celexa increased) Consults ordered or reviewed: pt was seen by medical team Goal/Treatment Plan - Goal/Treatment Plan Need for Continued Stay: Severe depression anxiety, Discharge may exacerbated symptoms, Severe functional impairment Estimated Date of D/C: 12/01/16
[2016-11-26 01:25] VITALS: O2SAT 100
[2016-11-26] MEDS: Multivitamin With Minerals Tab PO SCH (09:52)
--- NOTE | 2016-11-26 14:46 | PCM.PYCHPN ---
Psychiatric Progress Note - Psychiatric Progress Note Patient seen today, length of contact: 30min Patient Chief Complaint: " I am better" Medical Problems: see medical team note for more detailed info Diagnostic Results: 11/23/16 08:40 11/23/16 08:40 Lab Results 11/23/16 08:40: RPR Nonreactive 11/23/16 08:40: TSH 3rd Generation 0.52 11/23/16 08:40: Sodium 141, Potassium 4.1, Chloride 104, Carbon Dioxide 28, Anion Gap 13, BUN 15, Creatinine 0.8, Est GFR ( Amer) > 60, Est GFR (Non- Af Amer) > 60, Random Glucose 88, Calcium 9.3, Total Bilirubin 0.3, AST 25, ALT 33, Alkaline Phosphatase 63, Total Protein 7.2, Albumin 3.7, Globulin 3.5, Albumin/Globulin Ratio 1.1 11/23/16 08:40: WBC 5.4, RBC 5.04, Hgb 13.4 L, Hct 39.7 L, MCV 78.8 L, MCH 26.6 , MCHC 33.8, RDW 15.6 H, Plt Count 342, MPV 8.4, Gran % 56.6, Lymph % (Auto) 29.1, [place] % (Auto) 9.7 H, Eos % (Auto) 3.7, Baso % (Auto) 0.9, Gran # 3.03, Lymph # 1.6, [place] # 0.5, Eos # 0.2, Baso # 0.05 11/22/16 13:40: Urine Color Yellow, Urine Appearance Clear, Urine pH 6.0, Ur Specific [place] 1.020, Urine Protein Negative, Urine Glucose (UA) Negative, Urine Ketones Negative, Urine Blood Negative, Urine Nitrate Negative, Urine Bilirubin Negative, Urine Urobilinogen 0.2, Ur Leukocyte Esterase Negative 11/22/16 11:50: Triglycerides 84, Cholesterol 168, LDL Cholesterol Direct 56, HDL Cholesterol 93 H Vital Signs Temp Pulse Resp BP Pulse Ox 11/24/16 07:46 97.4 F L 74 100/70 20 L 11/23/16 06:56 97.4 F L 64 18 81/46 L 99 11/22/16 16:28 76 103/61 11/22/16 09:30 97.9 F 62 20 103/63 11/22/16 08:17 97.9 F 61 18 109/60 99 Temp Pulse Resp BP Pulse Ox 98.1 F 70 16 105/67 20 L 11/25/16 10:00 11/25/16 10:00 11/25/16 10:00 11/25/16 10:00 11/24/16 07:46 Temp Pulse Resp BP Pulse Ox 98.1 F 98 H 18 105/67 100 11/25/16 10:00 11/26/16 01:19 11/26/16 01:19 11/25/16 10:00 11/26/16 01:19 DSM 5 Symptoms Update: Patient is a single homeless 41 year old -[place] male with a reported history of Schizoaffective disorder, bipolar type, crack/cocaine abuse, alcohol abuse, prior psychiatric admissions-most recently at [facility] x2 months ago, no SA, noncompliance with medications who was transferred from [facility] in [place], [place] to [facility] Psychiatric unit for treatment of depression and auditory hallucinations. Patient was seen in his room, patient presented to have very poor personal hygiene, disengaged, acceptable ADLs. pt is still minimally cooperative was giving yes or no answers only, talked to this wrier covering his had with the blanket. Presently patient continues to feel depressed however he feels safe on the unit and does not have any thoughts to harm himself. He also denies recurrence of hallucinations. as per staff report pt self isolating, not interested to go to the groups. when was asked where pt sees himself after d/c, pt said "I need to find the place with good food, assisted, where medications would be given..." MSE: Pt was alert, oriented in self, time and place. Memory and concentration are poor, fund of knowledge is poor. Pt deemed to be unreliable historian, disengaged. Pt looks older than chronological age, poor personal hygiene, fair ADLs, with psychomotor retardation, speech was: slow, slurred, no eye contact, mood described:"depressed", affect:flat , thought process: concrete thought content: denied SI/ HI, denied v/a/t hallucinations, denied paranoid ideation, but pt appear to be internally preoccupied, ( pt c/o voices in the [facility]) fair insight/judgment: , impulses are well controlled. 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 Plan: grp, milieu and supportive tx Celexa 15 mg po daily for depression will be continued Haldol 2 mg AM/HS for hallucinations will be continued Ativan 1 mg q12 for alcohol withdrawal and for anxiety to be continued Sonata 5 mg HS prn for insomnia to be continued Appreciate f/u by Dr Lakhani, will call for reconsult for possible conjunctivitis, pt was seen for f/u To repeat Urine Analysis and Culture ordered Continue with Doxycycline 100 mg BID for UTI Pt was educated about risk/benefits and alternatives of medications, coping strategies (safety plan, suicide prevention), relapse prevention, importance of follow up with psychiatrist and therapist, stay away from drugs/alcohol/smoking MVI, thiamine, folic acid Monitor vitals Medication Change: Yes (ativan decreased, celexa increased) Consults ordered or reviewed: pt was seen by medical team Goal/Treatment Plan - Goal/Treatment Plan Need for Continued Stay: Severe depression anxiety, Discharge may exacerbated symptoms, Severe functional impairment Estimated Date of D/C: 12/01/16
[2016-11-26] MEDS: Mineral Oil/Petrolatum Opht Oint(3.5 gm) OD SCH (18:00)
[2016-11-27] MEDS: Mineral Oil/Petrolatum Opht Oint(3.5 gm) OD SCH ×3 (09:12→18:13)
[2016-11-27] MEDS: Multivitamin With Minerals Tab PO SCH (09:14)
[2016-11-27 12:25] VITALS: RESP 18; TEMP 97
--- NOTE | 2016-11-27 15:20 | PCM.PYCHPN ---
Psychiatric Progress Note - Psychiatric Progress Note Patient seen today, length of contact: 30min Patient Chief Complaint: " I am better" Medical Problems: see medical team note for more detailed info Diagnostic Results: 11/23/16 08:40 11/23/16 08:40 Lab Results 11/23/16 08:40: RPR Nonreactive 11/23/16 08:40: TSH 3rd Generation 0.52 11/23/16 08:40: Sodium 141, Potassium 4.1, Chloride 104, Carbon Dioxide 28, Anion Gap 13, BUN 15, Creatinine 0.8, Est GFR ( Amer) > 60, Est GFR (Non- Af Amer) > 60, Random Glucose 88, Calcium 9.3, Total Bilirubin 0.3, AST 25, ALT 33, Alkaline Phosphatase 63, Total Protein 7.2, Albumin 3.7, Globulin 3.5, Albumin/Globulin Ratio 1.1 11/23/16 08:40: WBC 5.4, RBC 5.04, Hgb 13.4 L, Hct 39.7 L, MCV 78.8 L, MCH 26.6 , MCHC 33.8, RDW 15.6 H, Plt Count 342, MPV 8.4, Gran % 56.6, Lymph % (Auto) 29.1, [place] % (Auto) 9.7 H, Eos % (Auto) 3.7, Baso % (Auto) 0.9, Gran # 3.03, Lymph # 1.6, [place] # 0.5, Eos # 0.2, Baso # 0.05 11/22/16 13:40: Urine Color Yellow, Urine Appearance Clear, Urine pH 6.0, Ur Specific [place] 1.020, Urine Protein Negative, Urine Glucose (UA) Negative, Urine Ketones Negative, Urine Blood Negative, Urine Nitrate Negative, Urine Bilirubin Negative, Urine Urobilinogen 0.2, Ur Leukocyte Esterase Negative 11/22/16 11:50: Triglycerides 84, Cholesterol 168, LDL Cholesterol Direct 56, HDL Cholesterol 93 H Vital Signs Temp Pulse Resp BP Pulse Ox 11/24/16 07:46 97.4 F L 74 100/70 20 L 11/23/16 06:56 97.4 F L 64 18 81/46 L 99 11/22/16 16:28 76 103/61 11/22/16 09:30 97.9 F 62 20 103/63 11/22/16 08:17 97.9 F 61 18 109/60 99 Temp Pulse Resp BP Pulse Ox 98.1 F 70 16 105/67 20 L 11/25/16 10:00 11/25/16 10:00 11/25/16 10:00 11/25/16 10:00 11/24/16 07:46 Temp Pulse Resp BP Pulse Ox 98.1 F 98 H 18 105/67 100 11/25/16 10:00 11/26/16 01:19 11/26/16 01:19 11/25/16 10:00 11/26/16 01:19 DSM 5 Symptoms Update: Patient is a single homeless 41 year old -Angolan male with a reported history of Schizoaffective disorder, bipolar type, crack/cocaine abuse, alcohol abuse, prior psychiatric admissions-most recently at [facility] x2 months ago, no SA, noncompliance with medications who was transferred from [facility] in [place], [place] to [facility] Psychiatric unit for treatment of depression and auditory hallucinations. Patient was seen in his room, patient presented to have very poor personal hygiene, disengaged, acceptable ADLs. pt is still minimally cooperative was giving yes or no answers only, talked to this wrier covering his had with the blanket. pt denied being depressed, denied thoughts of harming self or other, pt said that he will be interested in the place "with good food, snf, where medications would be given..." pt sleeps majority of the times, eats 100%, no behavioral problems. MSE: Pt was alert, oriented in self, time and place. Memory and concentration are poor, fund of knowledge is poor. Pt deemed to be unreliable historian, disengaged. Pt looks older than chronological age, poor personal hygiene, fair ADLs, with psychomotor retardation, speech was: slow, slurred, no eye contact, mood described:"I am good", affect:flat , thought process: concrete thought content: denied SI/ HI, denied v/a/t hallucinations, denied paranoid ideation, fair insight/judgment: , impulses are well controlled. 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 Plan: grp, milieu and supportive tx Celexa 20 mg po daily for depression will be continued Haldol 2 mg AM/HS for hallucinations will be continued Ativan d/c Sonata 5 mg HS prn for insomnia to be continued Appreciate f/u by Dr Lakhani, will call for reconsult for possible conjunctivitis, pt was seen for f/u To repeat Urine Analysis and Culture ordered Continue with Doxycycline 100 mg BID for UTI, d/w attending , will d/c elly Pt was educated about risk/benefits and alternatives of medications, coping strategies (safety plan, suicide prevention), relapse prevention, importance of follow up with psychiatrist and therapist, stay away from drugs/alcohol/smoking MVI, thiamine, folic acid Monitor vitals Medication Change: Yes (ativan decreased, celexa increased) Medical Record Reviewed: Yes Consults ordered or reviewed: pt was seen by medical team Goal/Treatment Plan - Goal/Treatment Plan Need for Continued Stay: Severe depression anxiety, Discharge may exacerbated symptoms, Severe functional impairment Estimated Date of D/C: 11/28/16 (pt reached maximum effect from this hospitalization)
[2016-11-27 22:30] VITALS: BP 106/62; PULSE 67
[2016-11-28] MEDS: Mineral Oil/Petrolatum Opht Oint(3.5 gm) OD SCH (09:29)
[2016-11-28] MEDS: Multivitamin With Minerals Tab PO SCH (09:34)
--- NOTE | 2016-11-28 15:54 | PCM.PYCHDC ---
Mental Status Examination - Mental Status Examination Orientation: Person, Place, Situation, Time Memory: Intact Mood: Neutral Affect: Constricted Attention: Poor (baseline) Concentration: Poor (baseline) Language: Word Retrieval Association: Loose (baseline but improved) Fund of Knowledge: Poor Formal Thought Process: No Impairment Description of patient's judgement and insight: somewhat better pt was compliant with medications and unit rules and regulations , pt was going to groups, was calm, cooperative, socially appropriate, no behavioral incidents, no agitation, no aggression. Psychotic Thoughts and Behaviors: Pt denied v/a/t hallucinations, denied paranoid ideations, pt does not appear to be psychotic, and thought process is goal directed. Suicidal Ideation: No Current Homicidal Ideation?: No Plan: pt adamantly denied thoughts of harming self or others denied intent or plan. Discharge Summary - Discharge Note Reason for Hospitalization: depression/psychosis, see note for more detailed info Laboratory Data: 11/23/16 08:40 11/23/16 08:40 Lab Results 11/23/16 08:40: RPR Nonreactive 11/23/16 08:40: TSH 3rd Generation 0.52 11/23/16 08:40: Sodium 141, Potassium 4.1, Chloride 104, Carbon Dioxide 28, Anion Gap 13, BUN 15, Creatinine 0.8, Est GFR ( Amer) > 60, Est GFR (Non- Af Amer) > 60, Random Glucose 88, Calcium 9.3, Total Bilirubin 0.3, AST 25, ALT 33, Alkaline Phosphatase 63, Total Protein 7.2, Albumin 3.7, Globulin 3.5, Albumin/Globulin Ratio 1.1 11/23/16 08:40: WBC 5.4, RBC 5.04, Hgb 13.4 L, Hct 39.7 L, MCV 78.8 L, MCH 26.6 , MCHC 33.8, RDW 15.6 H, Plt Count 342, MPV 8.4, Gran % 56.6, Lymph % (Auto) 29.1, Carbon % (Auto) 9.7 H, Eos % (Auto) 3.7, Baso % (Auto) 0.9, Gran # 3.03, Lymph # 1.6, Carbon # 0.5, Eos # 0.2, Baso # 0.05 11/22/16 13:40: Urine Color Yellow, Urine Appearance Clear, Urine pH 6.0, Ur Specific [place] 1.020, Urine Protein Negative, Urine Glucose (UA) Negative, Urine Ketones Negative, Urine Blood Negative, Urine Nitrate Negative, Urine Bilirubin Negative, Urine Urobilinogen 0.2, Ur Leukocyte Esterase Negative 11/22/16 11:50: Hemoglobin A1c 4.3 11/22/16 11:50: Triglycerides 84, Cholesterol 168, LDL Cholesterol Direct 56, HDL Cholesterol 93 H Vital Signs Temp Pulse Resp BP Pulse Ox 11/27/16 16:00 67 106/62 11/27/16 10:00 97.0 F L 70 18 116/72 11/27/16 06:53 98.2 F 67 20 105/66 11/26/16 01:19 98 H 18 100 11/25/16 10:00 98.1 F 70 16 105/67 11/24/16 16:23 67 90/50 L 11/24/16 07:46 97.4 F L 74 100/70 20 L 11/23/16 06:56 97.4 F L 64 18 81/46 L 99 11/22/16 16:28 76 103/61 11/22/16 09:30 97.9 F 62 20 103/63 11/22/16 08:17 97.9 F 61 18 109/60 99 Consultations:: List each consultation separately and include: 1. Reason for request. 2. Findings. 3. Follow-up Consultations: pt was seen by medical team see notes for more detailed information Summary of Hospital Course include:: 1. Description of specific treatment plan utilized for patients during their course of treatmen. 2. Summarize the time- course for resolution of acute symptoms and/or regressed behaviors. 3. Describe issues identified and worked on during hospitalization. 4. Describe medication utilized. 5. Describe medical problems identified and treated. 6. Reassessment of suicide risk Summary of Hospital Course: Patient is a single homeless 41 year old -Algerian male with a reported history of Schizoaffective disorder, bipolar type, crack/cocaine abuse, alcohol abuse, prior psychiatric admissions-most recently at [facility] x2 months ago, no SA, noncompliance with medications who was transferred from [facility] in [place], [place] to [facility] Psychiatric unit for treatment of depression and auditory hallucinations. please see 's initial note for more detailed info. initially patient presented to have very poor personal hygiene, disengaged, acceptable ADLs. pt is still minimally cooperative with interview pt was talking to this screen writer looking on the wall. Presently patient continues to feel depressed however he feels safe on the unit and does not have any thoughts to harm himself. He also denies recurrence of hallucinations. as per staff report pt self isolating, not interested to go to the groups. but no physical aggression, no agitation, pt was socially appropriate. pt was stabilized on the following meds: Celexa 20 mg po daily for depression will be continued Haldol 2 mg AM/HS for hallucinations will be continued Ativan was weaned off Sonata 5 mg HS prn for insomnia for UTI pt was continued on Doxycycline 100 mg BID for UTI, but culture came back negative, it was d/c then. pt has redness of his right eye, will call for the medical team pt reached maximum effect from this hospitalization. At the time of the discharge pt denied been depressed, denied thoughts of harming self or others, denied psychotic symptoms, and pt does not appeared to be psychotic, denied been anxious, pt is not in imminent danger to self or others, will be following up with outpatient psychiatrist, information about follow up appointment, time and address provided to the pt, it is patient responsibility to follow up with outpatient clinic, PMD as well as specialists ( see note for more detailed information). In case pt will need to obtain results of studies pending at discharge pt was provided with contact information of Psychiatric Inpatient unit [phone] as well as Medical Record Department [phone]. Nicotine patch was offered Counseling about smoking and alcohol cessation provided AA meetings as well as [facility] smoking cessation treatment program information was provided by the pt was provided with prescriptions for all of medications (please see medication reconciliation form) Pt was educated about safety plan in case of worsening of symptoms or in case of suicidal or homicidal ideation call 911 or go to the nearest ER, also was educated to take meds as prescribed and stay away from drugs, pt verbalized understanding. - Diagnosis (1) Schizoaffective disorder Status: Chronic Priority: Medium (2) Polysubstance abuse Status: Acute Priority: High - Final Diagnosis (DSM 5) Condition upon Discharge: FAIR Disposition: HOME/ ROUTINE Follow-up Treatment Plan: At the time of the discharge pt denied been depressed, denied thoughts of harming self or others, denied psychotic symptoms, and pt does not appeared to be psychotic, denied been anxious, pt is not in imminent danger to self or others, will be following up with outpatient psychiatrist, information about follow up appointment, time and address provided to the pt, it is patient responsibility to follow up with outpatient clinic, PMD as well as specialists ( see note for more detailed information). In case pt will need to obtain results of studies pending at discharge pt was provided with contact information of Psychiatric Inpatient unit [phone] as well as Medical Record Department [phone]. Nicotine patch was offered Counseling about smoking and alcohol cessation provided meetings as well as [facility] smoking cessation treatment program information was provided by the pt was provided with prescriptions for all of medications (please see medication reconciliation form) Pt was educated about safety plan in case of worsening of symptoms or in case of suicidal or homicidal ideation call 911 or go to the nearest ER, also was educated to take meds as prescribed and stay away from drugs, pt verbalized understanding. Prescriptions/Medication Reconciliation: Citalopram Hydrobromide [Celexa] 20 mg PO DAILY #14 tablet RX: Folic Acid 1 mg PO DAILY #14 tab RX: Haloperidol [Haldol] 2 mg PO AMHS #30 tab RX: Loratadine [Claritin] 10 mg PO DAILY #7 tab RX: Mineral Oil/White Petrolatum [Artificial Tears Opht Oint] 1 gm OD TID #1 tube RX: Multimineral/Multivitamin [Therapeutic-M Tab] 1 tab PO 0800 #14 tab RX: Thiamine [Vitamin B1 Tab] 100 mg PO DAILY #14 tab RX: Zaleplon [Sonata] 5 mg PO HS PRN #14 cap PRN Reason: Insomnia - Smoking Cessation Smoking Cessation Medication prescribed: No Reason for not providing: denied smoking - Antipsychotic Medications Pt discharged on 2 or more routine antipsychotic medications: No
== END 2016-11-28 13:30 | disposition home or self-care (01) | DRG 885 ==
LOC: ED 08:11 → ERH 08:24 → PSYC 09:38
PROVIDERS: ADMIT Psychiatry & Neurology Psychiatry; ATTEND Psychiatry & Neurology Psychiatry
DX: F25.0 Schizoaffective disorder, bipolar type (principal); F11.20 Opioid dependence, uncomplicated; F14.20 Cocaine dependence, uncomplicated; N39.0 Urinary tract infection, site not specified; F10.239 Alcohol dependence with withdrawal, unspecified; Z59.0 Homelessness; Z79.899 Other long term (current) drug therapy; Z80.42 Family history of malignant neoplasm of prostate; Z80.6 Family history of leukemia; Z91.14 Patient's other noncompliance with medication regimen; R40.2411 Glasgow coma scale score 13-15, in the field [EMT or ambulance]; Z56.0 Unemployment, unspecified; G47.00 Insomnia, unspecified; F17.210 Nicotine dependence, cigarettes, uncomplicated; F39 Unspecified mood [affective] disorder; F41.9 Anxiety disorder, unspecified; H10.10 Acute atopic conjunctivitis, unspecified eye